=== PATIENT | male | born 1955 | race African-American/Black ===

== ENCOUNTER → 2018-04-23 | Outpatient (CLI) | payer OTHER ==
[~2018-04-23] MED LIST: BUPIVACAINE MPF 0.25% 10 ML VIAL. ONE; IOHEXOL 180 MG/ML 10 ML VIAL. ONE; LIDOCAINE 2% PF 2ML VIAL. ONE; methylPREDNISolone ACETATE 80 MG/ML VIAL. ONE
--- NOTE | 2018-04-24 | PAIN ---
DATE OF SERVICE: 04/23/2018 INITIAL CONSULTATION FOR PAIN CLINIC CHIEF COMPLAINT: Bilateral knee pain, left greater than right. HISTORY OF PRESENT ILLNESS: This is a 63-year-old male who presents with history of pain in the bilateral knees for about 2 years now, left greater than right. The patient reports he has had injections in his right knee, which were not helpful and he had an MRI on his right knee as well, but does not know the result of this and we do not have this result at the time of this dictation. The patient reports his left knee, however, is the most significant painful area of his lower extremities. The patient reports muscle pain in the left ankle, for which he has had surgery on his ankles as well in the past without significant improvement. He is unsure what his diagnoses were that prompted the surgery at that time. The patient reports worse with standing, walking, changing positions, especially climbing stairs, especially with his left leg. The patient reports he has seen an orthopedist at the [facility] in the past, but has not had any further workup on his left knee or in the right knee, which again did not go well with injections in the knee itself. The patient reports he is not sure what these injections were and I have no records of this on his referral notes that were sent from the [facility] for his referral today. The patient did have some x-rays of the bilateral knees showing some moderate degenerative changes bilaterally without severe changes. The patient reports the pain is becoming more constant. It is aching, sharp, shooting. Even at rest, his left knee is painful. The patient reports that when he is driving the car, he has to stop at a stoplight and will open the driver license technician's door to straighten out his left knee, has to get outside of the car to try and get it to feel better. The patient has tried physical therapy, counseling, chiropractic treatment, exercise in the past, all of which have been only mildly decreasing the pain in his knees and left ankle. The patient reports it awakens him from sleep at least 3 times a night. He is using a cane to ambulate and affects his walking significantly. He has tried ibuprofen, meloxicam, as well as tramadol, none of these have helped in the past by his report. PAST MEDICAL HISTORY: Significant for type 2 diabetes, shortness of breath, hypertension, sleep apnea, supraventricular tachycardia, hyperlipidemia, arthritis, and history of cocaine dependence, in remission now. PAST SURGICAL HISTORY: Include right rotator cuff repair, right knee surgery, bilateral ankle surgery, and prostatectomy. CURRENT MEDICATIONS: Include diltiazem, folic acid daily, baby aspirin, tramadol, topiramate, duloxetine, carboxymethylcellulose eyedrops, prednisolone eyedrops as well, tolnaftate topical, losartan, metformin, amoxicillin, hydrocodone, gabapentin, trazodone, fluoxetine, rosuvastatin, meloxicam, levofloxacin and oxybutynin. ALLERGIES: The patient has no known drug allergies. FAMILY HISTORY: Significant for no major medical problems or conditions he indicates. SOCIAL HISTORY: The patient does not drink alcohol, does not use any illegal, illicit or recreational drugs. Currently smokes cigarettes and has for over 40 years less than a pack a day. He is , lives with his spouse, lives locally in [place], [place]. He reports he is currently on disability secondary to his current pain issue. REVIEW OF SYSTEMS: The patient's review of systems is positive for those items mentioned in the history of present illness. All systems reviewed and otherwise negative. It is complete, full and well documented on the patient's chart. PHYSICAL EXAMINATION: VITAL SIGNS: The patient's blood pressure is 162/86, pulse 87, respirations 16, temperature 98.2 degrees Fahrenheit, height is 6 feet 1 inch, weight is 293 pounds. GENERAL: The patient is awake, alert, oriented, appropriate, very pleasant demeanor. HEENT: Shows normocephalic, atraumatic. Extraocular movements are intact and symmetrical. Oral cavity: Mucous membranes moist and pink. Dentition is intact. NECK: Shows anterior throat supple without palpable lymphadenopathy noted. Swallow reflex is symmetrical. CHEST: Shows normal with inspection. Breath sounds are clear to auscultation bilaterally. HEART: Shows S1, S2 clear. No murmurs auscultated. ABDOMEN: Soft, nontender, nondistended. No palpable organomegaly. No rebound or guarding demonstrated. BACK: Shows spine grossly in midline. Normal appearing thoracic kyphosis and lumbar lordotic curvature. Lumbar paraspinous muscle shows symmetrical on inspection. With palpation shows no significant tenderness in the upper, middle and lower distribution of paraspinous muscles. The patient has full rotational motion of lumbar spine both laterally greater than 10 degrees right and left, as well as extension greater than 10 degrees, forward flexion 45 degrees without difficulty. The patient shows no tenderness over the sacrum or sacroiliac regions over the spinous processes. EXTREMITIES: The patient's lower extremities show deep tendon reflexes 1+ in the patellar and tendo calcaneus tendons are equal. Motor exam is strong with 4/5 and equal dorsiflexion and extension and symmetrical. Peripheral pulses are 1+ posterior tibial. The patient does have some well-healed surgical scarring noted in the medial aspect of the left malleolus and ankle. The patient was initially wearing a knee brace on his right knee, a soft brace. Knees show good full range of hinge motion; however, without significant limitation or popping or ratcheting and only with mild pain in the medial aspect of the left medial collateral ligament. Negative sign bilaterally. SKIN: Shows warm and dry, good turgor. No edema. No sores, rashes or bruising. IMPRESSION: This is a 63-year-old male with: 1. Approximate 2-year history of increasing pain in of the both knees, status post injections in the right knee without further workup by his report. Again, results of the MRI scan not available at the time of this dictation. 2. Hypertension. 3. Type 2 diabetes. 4. Arthritis. 5. Cigarette smoking. PLAN: Options were discussed with the patient including conservative medical management, continued physical therapy, and interventional techniques and he initially requests stronger pain medication; however, we discussed that we would only be available for interventional treatment if he was interested in these. He would like to proceed with a left intraarticular knee joint injection. We described the procedure using description as well as anatomical models to describe the procedure. Risks were then discussed including, but not limited to bleeding, infection, possibility of intravascular injection sequelae, spread of local anesthetic and numbness, side effects of steroid medication, exposure to fluoroscopy and poor results regarding pain control. The patient understands and wished to proceed. The patient will return to the clinic in approximately 2 weeks for followup, was counseled on return appointment, activity level and side effects to be aware of. The patient also is to follow up with his primary care physician at the [facility] in [place], [place] for results on his MRI scan. A potential referral back for orthopedic services depending on those results. The patient will return to this office in approximately 2 weeks. We will evaluate the degree of improvement with the injection today. DIAGNOSIS: Primary osteoarthritis left knee joint with left knee joint pain. PROCEDURE: Left intraarticular knee joint injection using C-arm fluoroscopic guidance under sterile prep and drape using local anesthetic. MEDICATION INJECTED: A total of 80 mg Depo-Medrol plus 3 mL of 0.25% of bupivacaine and 2 mL of Isovue for contrast. CONDITION AT DISCHARGE: Stable. The patient tolerated the procedure well, had no complications. JOHANNA DYSON MD DR: BERT/lucie JOB#: [id number] / [id number]
== END | disposition home or self-care (01) ==
LOC: PNCL 12:48
PROVIDERS: ATTEND Anesthesiology
DX: M17.12 Unilateral primary osteoarthritis, left knee (principal); I10 Essential (primary) hypertension; E11.9 Type 2 diabetes mellitus without complications; M19.90 Unspecified osteoarthritis, unspecified site; F17.210 Nicotine dependence, cigarettes, uncomplicated; Z79.82 Long term (current) use of aspirin; Z79.84 Long term (current) use of oral hypoglycemic drugs; Z79.2 Long term (current) use of antibiotics; Z79.899 Other long term (current) drug therapy; Z98.890 Other specified postprocedural states; Z90.79 Acquired absence of other genital organ(s); G47.30 Sleep apnea, unspecified; E78.5 Hyperlipidemia, unspecified; F14.21 Cocaine dependence, in remission; I47.1 Supraventricular tachycardia
CPT/HCPCS: 20610; 77002; J1040; J2001; J3490; Q9965